=== PATIENT | female | born 1975 | race Caucasian/White ===

== ENCOUNTER 2018-09-24 14:52 | Observation (INO) | payer OTHER ==
[~2018-09-24] VITALS: Ht 160 cm; Wt 65.8 kg
[2018-11-28] MEDS ORDERED: METHY250 PO (11:09)
[2018-11-28] MEDS ORDERED: PREN-217 PO (11:09)
[2018-11-28] MEDS ORDERED: FERR-89 PO (11:10)
[2018-11-28 11:12] VITALS: BP 120/75
[2018-11-28] MEDS ORDERED: RINGERS SOLUTION,LACTATED 1,000 ML IV ONE ×2 (11:19→11:30)
== END 2018-11-28 12:50 | disposition home or self-care (01) ==
LOC: 4S 11-28 10:05
PROVIDERS: ADMIT Obstetrics & Gynecology; ATTEND Obstetrics & Gynecology
DX: O10.913 Unspecified pre-existing hypertension complicating pregnancy, third trimester (principal); O09.523 Supervision of elderly multigravida, third trimester; Z3A.37 37 weeks gestation of pregnancy
CPT/HCPCS: 81002; G0378; J7120

== ENCOUNTER 2018-11-30 07:45 | Observation (INO) | payer OTHER ==
[~2018-11-30] VITALS: Ht 160 cm; Wt 65.8 kg
[~2018-11-30 07:45] MED LIST: FERR-89 PO; METHY250 PO; PREN-217 PO
[2018-11-30 08:20] VITALS: BP 113/74
== END 2018-11-30 09:45 | disposition home or self-care (01) ==
LOC: 4S 07:45
PROVIDERS: ADMIT Obstetrics & Gynecology; ATTEND Obstetrics & Gynecology
DX: O41.93X3 Disorder of amniotic fluid and membranes, unspecified, third trimester, fetus 3 (principal); O09.523 Supervision of elderly multigravida, third trimester; Z3A.38 38 weeks gestation of pregnancy
CPT/HCPCS: 81002; G0378

== ENCOUNTER 2018-11-30 11:57 | Observation (INO) | payer OTHER ==
[~2018-11-30] VITALS: Ht 160 cm; Wt 61.2 kg
== END 2018-12-05 17:50 | disposition home or self-care (01) ==
LOC: 4S 12-05 15:40
PROVIDERS: ADMIT Obstetrics & Gynecology; ATTEND Obstetrics & Gynecology
DX: O42.92 Full-term premature rupture of membranes, unspecified as to length of time between rupture and onset of labor (principal); O09.523 Supervision of elderly multigravida, third trimester; Z3A.38 38 weeks gestation of pregnancy
CPT/HCPCS: 36415; 76805; 89060; G0378

== ENCOUNTER 2018-12-06 19:55 | Inpatient (IN) | payer OTHER ==
[~2018-12-06] VITALS: Ht 160 cm; Wt 62.6 kg
[~2018-12-06 19:55] MED LIST changes: +0.9% SODIUM CHLORIDE 10 ML VIAL IVP ONE; +EPHEDrine SULFATE 50 MG/ML VIAL IM ONE; +KETOROLAC TROMETHAMINE 60 MG/2 ML VIAL IM ONE; +ONDANSETRON HCL 4 MG/2 ML VIAL IVP ONE; +OXYTOCIN 10 UNITS/ML VIAL IM ONE
[2018-12-06] MEDS ORDERED: RINGERS SOLUTION,LACTATED 1,000 ML IV ONE ×2 (20:34→20:38)
[2018-12-06] MEDS ORDERED: TERBUTALINE SULFATE 1 MG/ML VIAL SQ PRN (20:40)
[2018-12-06] MEDS ORDERED: CITRIC ACID/SODIUM CITRATE 30 ML SOLUTION UDCUP PO ONE (20:45)
[2018-12-06] MEDS ORDERED: METOCLOPRAMIDE HCL 5 MG/ML 2 ML VIAL IVP ONE (20:45)
[2018-12-06] MEDS ORDERED: SODIUM CHLORIDE 0.9% 1,000 ML IV ONE (21:14)
[2018-12-06] MEDS ORDERED: BUPIVACAINE HCL/DEX-WATER/PF 0.75% 2 ML AMP ONE (21:14)
[2018-12-06] MEDS ORDERED: MORPHINE SULFATE/PF 0.5 MG/ML 10 ML AMP ONE (21:17)
[2018-12-06 21:24] LABS: BASOPHILS % (AUTO) 0.4 % (0.0-2.0); EOSINOPHILS % (AUTO) 0.1 % (1.0-6.0); HEMATOCRIT 42.4 % (36-46); LYMPHOCYTES # (AUTO) 1.2 K/uL (1.0-4.8); LYMPHOCYTES % (AUTO) 10.3 % (22.0-44.0); MEAN CORPUSCULAR HEMOGLOBIN 30.9 pg (26.0-34.0); MEAN CORPUSCULAR VOLUME 94 fL (80-100); MONOCYTES # (AUTO) 0.7 K/uL (0.1-1.0); MONOCYTES % (AUTO) 5.9 % (2.0-9.0); NEUTROPHILS # (AUTO) 9.8 K/uL (1.8-7.7); NEUTROPHILS % (AUTO) 83.3 % (40.0-70.0); PLATELET COUNT (AUTO)-OB 229 K/uL (150-450); RED BLOOD CELL COUNT(AUTO) 4.53 MIL/uL (4.00-5.20); RED CELL DISTRIBUTION WIDTH 14.2 % (11.5-14.5)
[2018-12-06] MEDS ORDERED: GENTAMICIN 80 MG/NACL ISO-OSM 50 ML IV ONE (22:45)
[2018-12-06] MEDS ORDERED: ONDANSETRON HCL 4 MG/2 ML VIAL IVP PRN (23:15)
[2018-12-06] MEDS ORDERED: DiphenhydrAMINE HCL 50 MG/ML VIAL IVP PRN (23:15)
[2018-12-06] MEDS ORDERED: NALOXONE HCL 0.4 MG/ML VIAL IVP PRN (23:15)
[2018-12-06] MEDS ORDERED: NALBUPHINE HCL 10 MG/ML VIAL IVP PRN ×2 (23:15)
[2018-12-06] MEDS ORDERED: FentaNYL CITRATE-PF 100 MCG/2 ML VIAL IVP PRN (23:15)
[2018-12-06] MEDS ORDERED: LANOLIN 7 GM OINTMENT TP PRN (23:30)
[2018-12-07 00:06] VITALS: BP 119/74
[2018-12-07] MEDS: ACETAMINOPHEN 1000 MG/ISO-OSM 100 ML IV SCH ×2 (00:59→10:00)
[2018-12-07] MEDS: DEXTROSE 5%-0.45% SODIUM CHL 1,000 ML IV SCH ×4 (00:59→15:30)
[2018-12-07] MEDS: KETOROLAC TROMETHAMINE 30 MG/ML VIAL IVP SCH ×2 (05:21→14:42)
[2018-12-07] MEDS: OXYGEN THERAPY IH SCH ×2 (08:00→20:00)
[2018-12-07] MEDS ORDERED: OXYGEN THERAPY IH SCH (08:00)
[2018-12-07] MEDS ORDERED: ACETAMINOPHEN 1000 MG/ISO-OSM 100 ML IV ONE (10:12)
[2018-12-07] MEDS ORDERED: DEXTROSE 5%-0.45% SODIUM CHL 1,000 ML IV ONE ×2 (10:12→15:27)
[2018-12-07] MEDS: MAGNESIUM HYDROXIDE SUSPENSION 30 ML UDCUP PO SCH (10:19)
[2018-12-07] MEDS ORDERED: MORPHINE SULFATE/PF 0.5 MG/ML 10 ML AMP IVP ONE (12:00)
[2018-12-07] MEDS ORDERED: FentaNYL CITRATE-PF 100 MCG/2 ML VIAL IVP ONE (12:00)
[2018-12-07] MEDS: IBUPROFEN 800 MG TABLET PO SCH (17:31)
[2018-12-07] MEDS: ACETAMINOPHEN/CODEINE 300-30 MG TABLET PO PRN (22:40)
[2018-12-08] MEDS: MAGNESIUM HYDROXIDE SUSPENSION 30 ML UDCUP PO SCH ×2 (01:15→08:55)
[2018-12-08] MEDS: IBUPROFEN 800 MG TABLET PO SCH ×4 (01:16→21:18)
[2018-12-08] MEDS: ACETAMINOPHEN/CODEINE 300-30 MG TABLET PO PRN (16:33)
[2018-12-08] MEDS ORDERED: SIMETHICONE 80 MG CHEWABLE TABLET CHEW ONE (22:00)
[2018-12-09] MEDS: IBUPROFEN 800 MG TABLET PO SCH ×2 (03:32→09:12)
[2018-12-09] MEDS: MAGNESIUM HYDROXIDE SUSPENSION 30 ML UDCUP PO SCH (09:13)
[2018-12-09] MEDS ORDERED: IBUP-2071 PO (13:01)
== END 2018-12-09 13:45 | disposition home or self-care (01) | DRG 785 ==
LOC: 4S 19:55 → OBSVTOIN 19:55 → 4S 12-08 17:00
PROVIDERS: ADMIT Obstetrics & Gynecology; ATTEND Obstetrics & Gynecology
PROC: 10D00Z1 Extraction of Products of Conception, Low, Open Approach (ICD-10-PCS; principal; 2018-12-06)
PROC: 0UB70ZZ Excision of Bilateral Fallopian Tubes, Open Approach (ICD-10-PCS; 2018-12-06)
DX: O34.211 Maternal care for low transverse scar from previous cesarean delivery (principal); Z3A.38 38 weeks gestation of pregnancy; Z37.0 Single live birth; Z30.2 Encounter for sterilization
CPT/HCPCS: 86850; 86900; 86901; 88302; J0131; J0690; J1580; J1885; J2274; J2405; J2590; J2765; J3010; J3105; J3490; J7030; J7120